=== PATIENT | female | born 1970 | race American Indian/Alaskan Native ===

== ENCOUNTER 2017-07-22 06:33 | Emergency (ER) | payer BC ==
[2017-07-22 06:33] VITALS: BMI 26.6
[2017-07-22 06:53] VITALS: TEMP 98.7
[2017-07-22 07:37] VITALS: O2SAT 100
--- NOTE | 2017-07-22 07:51 | C.PDOC ---
History Of Present Illness 47 yo female w/o significant PMHx come in for evaluation of Right lower leg pain gradually developed for past few weeks. Pt sts, pain is diffuse from Right knee down to Right ankle, associated with mild ankle swelling. Pain is intermittent and worse with ambulation. Pt denies known trauma or injury, fever , chills, headache, dizziness, CP, SOB, dyspnea, diaphoresis, palpitation, cough , denies skin changes to Right leg, weakness, sensory or vascular deficits. No risk factors for DVT or PE. Noted HTN on triage, pt denies previous hx, no medication use. Time Seen by Provider: 07/22/17 07:23 Chief Complaint (Nursing): Lower Extremity Problem/Injury History Per: Patient History/Exam Limitations: no limitations Onset/Duration Of Symptoms: Gradual (past few weeks) Current Symptoms Are (Timing): Still Present Recent travel outside of the [place]: No Past Medical History Reviewed: Historical Data, Nursing Documentation, Vital Signs Vital Signs: Last Vital Signs Temp 98.7 F 07/22/17 06:45 Pulse 86 07/22/17 09:46 Resp 16 07/22/17 09:46 BP 173/98 H 07/22/17 09:46 Pulse Ox 100 07/22/17 10:41 Family History: States: No Known Family Hx - Social History Hx Alcohol Use: Yes (SOCIAL) Hx Substance Use: No - Immunization History Hx Tetanus Toxoid Vaccination: No Hx Influenza Vaccination: Yes Hx Pneumococcal Vaccination: No Review Of Systems Except As Marked, All Systems Reviewed And Found Negative. Constitutional: Negative for: Fever, Chills Cardiovascular: Negative for: Chest Pain, Palpitations Respiratory: Negative for: Cough, Shortness of Breath Musculoskeletal: Positive for: Other ((+) right lower leg pain and ankle swelling) Neurological: Negative for: Weakness, Numbness, Headache, Dizziness Physical Exam - Physical Exam Appears: Well, Non-toxic, No Acute Distress Skin: Normal Color, Warm, Dry, No Rash, No Ecchymosis Eye(s): bilateral: PERRL Nose: No Discharge Oral Mucosa: Moist Neck: Trachea Midline, Supple Cardiovascular: Rhythm Regular, No Murmur, No JVD Respiratory: No Decreased Breath Sounds, No Accessory Muscle Use, No Stridor, No Wheezing Back: No CVA Tenderness Extremity: Normal ROM, Tenderness (mild Right posterior knee), Calf Tenderness ( Right), No Capillary Refill, No Deformity, Swelling (mild over lateral malleolus of Right ankle.) Neurological/Psych: Oriented x3, Normal Speech, Normal Motor, Normal Sensation, Normal Reflexes ED Course And Treatment O2 Sat by Pulse Oximetry: 100 (RA) Pulse Ox Interpretation: Normal Progress Note: 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 TECH ARRIVED AT 9:05 AND STUDY WAS PERFORMED. On re-eval, pt is afebrile, hemodynamicaly stable. non-toxic. Ambulatory in Ed with stable gait. neck: Supple, (-) JVD, (-) carotid bruits B/L. CVS: (+)S1S2, reg. RLE: exam c/w lower leg cramping, FAROM, no neurovascular deficits, no skin changes. Neurologicaly intact. Doppler US RLE (-) DVT, mild fluid posterior aspect Right knee. Pt has clinical findings c/w HTN, Right knee arthralgia with lower leg cramping r/o blanchard cyst. Tesfaye wrap applied to Right knee. Pt advised. ref. to F/u with Ortho in 2-3 days for re-eavl. return if any new changes. Medical Decision Making Medical Decision Making: PLAN: * Venous Duplex * Hydrochlorothiazide PO Disposition Counseled Patient/Family Regarding: Studies Performed, Diagnosis, Need For Followup, Rx Given - Disposition Referrals: Gurjit Sadler MD [Staff Provider] - Disposition: HOME/ ROUTINE Disposition Time: 09:40 Condition: STABLE Additional Instructions: TESFAYE WRAP TO RIGHT KNEE FOR 2-3 WEEK IBUPROFEN FOR PAIN TWICE DAILY FOLLOW UP WITH ORTHOPEDIST IN 2-3 DAYS FOR RE-EVALUATION. RETURN TO ED IF ANY WORSENING OR NEW CHANGES. Prescriptions: Lisinopril/Hydrochlorothiazide [Lisinopril-Hctz 10-12.5 mg Tab] 1 each PO DAILY #20 tablet Instructions: Knee Pain (ED), Hypertension (ED) Forms: [facility] (South African), Work Excuse - Clinical Impression Clinical Impression: Arthralgia of knee, Leg cramping, Hypertension - PA / DIRECTOR PAID MEDIA / Resident Statement MD/DO has reviewed & agrees with the documentation as recorded. - Scribe Statement The provider has reviewed the documentation as recorded by the Scribe Nicole Marino All medical record entries made by the Scribe were at my direction and personally dictated by me. I have reviewed the chart and agree that the record accurately reflects my personal performance of the history, physical exam, medical decision making, and the department course for this patient. I have also personally directed, reviewed, and agree with the discharge instructions and disposition.
[2017-07-22 09:47] VITALS: BP 173/98; PULSE 86; RESP 16
--- NOTE | 2017-07-23 11:33 | VASCLAB ---
PROCEDURE: Right Lower Extremity Venous Duplex Exam. HISTORY: pain, Right lower extremity. edema PRIORS: None. TECHNIQUE: Right common femoral, femoral, popliteal and posterior tibial, peroneal and great saphenous veins were evaluated. Flow was assessed with color Doppler, compressibility, assessment of phasic flow and augmentation response. Report prepared by Dorian Pichardo, RVT FINDINGS: RIGHT: 1. Common Femoral Vein: 1.1. Compressibility - Fully compressible: Thrombus - None: Flow - Phasic: Augmentation -Normal: Reflux - . 2. Femoral Vein: 2.1. Compressibility - Fully compressible: Thrombus - None: Flow - Phasic: Augmentation -Normal: Reflux - . 3. Popliteal Vein: 3.1. Compressibility - Fully compressible: Thrombus - None: Flow - Phasic: Augmentation -Normal: Reflux - . 4. Posterior Tibial Vein: 4.1. Compressibility - Fully compressible: Thrombus - None: Flow - : Augmentation -: Reflux - . 5. Peroneal Vein: 5.1. Compressibility - Fully compressible: Thrombus - None: Flow - : Augmentation -: Reflux - . 6. Great Saphenous Vein: 6.1. Compressibility - Fully compressible: Thrombus -None: Flow - Phasic: Augmentation - Normal: Reflux - . OTHER FINDINGS: There was a complex non vascular structure behind the right knee noted, which measured approximately 4.1x1.3 cm. IMPRESSION: No evidence of deep or superficial vein thrombosis of the right lower extremity with excellent venous flow. Normal venous flow noted in the left common femoral vein.
== END 2017-07-22 10:37 | disposition home or self-care (01) ==
LOC: C.ER 06:33
DX: M25.561 Pain in right knee (principal); R25.2 Cramp and spasm; I10 Essential (primary) hypertension

== ENCOUNTER 2017-07-27 20:47 | Emergency (ER) | payer BC ==
[2017-07-27 20:47] VITALS: BMI 26.6
[2017-07-27 21:00] VITALS: RESP 18
[2017-07-27] MEDS ORDERED: DiphenhydrAMINE 50 mg/ml Inj IVP STA (21:54)
--- NOTE | 2017-07-27 21:57 | C.PDOC ---
History Of Present Illness 47 year old female presents to the ER after having an allergic reaction at approximately 19:00 which caused lower lip swelling. Patient reports she was eating a sausage at the time which is not uncommon for her but also notes she recently started taking lisinopril 2 days ago. Denies chest pain, SOB, difficulty breathing, or difficulty swallowing. Chief Complaint (Nursing): Allergic Reaction History Per: Patient History/Exam Limitations: no limitations Onset/Duration Of Symptoms: Hrs Current Symptoms Are (Timing): Still Present Possible Cause: ISACC Inhibitor Associated Symptoms: Swelling Home/EMS Treatment: None Recent travel outside of the [place]: No Past Medical History Reviewed: Historical Data, Nursing Documentation, Vital Signs Vital Signs: Last Vital Signs Temp 98.0 F 07/27/17 23:56 Pulse 84 07/27/17 23:56 Resp 18 07/27/17 23:56 BP 148/86 07/27/17 23:56 Pulse Ox 99 07/28/17 00:07 - Medical History PMH: HTN Family History: States: Unknown Family Hx - Social History Hx Alcohol Use: Yes (SOCIAL) Hx Substance Use: No - Immunization History Hx Tetanus Toxoid Vaccination: No Hx Influenza Vaccination: Yes Hx Pneumococcal Vaccination: No Review Of Systems Constitutional: Negative for: Fever, Chills ENT: Positive for: Mouth Swelling (Lower lip). Negative for: Throat Swelling Cardiovascular: Negative for: Chest Pain, Palpitations Respiratory: Negative for: Cough, Shortness of Breath, Wheezing Gastrointestinal: Negative for: Abdominal Pain Skin: Negative for: Rash Physical Exam - Physical Exam Appears: Non-toxic Skin: Normal Color, Warm, Dry Head: Atraumatic, Normacephalic Eye(s): bilateral: Normal Inspection Nose: Normal Oral Mucosa: Moist Tongue: Normal Appearing, No Swelling Lips: Swelling (Angioedema to lower lip) Gingiva: No Swelling Throat: Normal, No Erythema, No Exudate, No Other (Swelling) Neck: Normal, Supple Chest: Symmetrical, No Tenderness Cardiovascular: Rhythm Regular Respiratory: Normal Breath Sounds, No Accessory Muscle Use, No Rales, No Rhonchi , No Stridor, No Wheezing Gastrointestinal/Abdominal: Soft, No Tenderness Neurological/Psych: Oriented x3, Normal Speech ED Course And Treatment O2 Sat by Pulse Oximetry: 99 (Room air) Pulse Ox Interpretation: Normal Medical Decision Making Medical Decision Making: Impression: ISACC inhibitor induced angioedema. will treat with benadryl, pepcid, solumedrol, and IV fluids. On reevaluation, bottom lip edema persists but is not progressing, patient advised to apply ice pack at home and discontinue lisinopril, will put on alternative hypertensive meds and discharge home. Disposition - Disposition Disposition: HOME/ ROUTINE Disposition Time: 00:40 Condition: FAIR Prescriptions: Chlorthalidone [Hygroton] 25 mg PO DAILY #14 tab DiphenhydrAMINE [Benadryl] 25 mg PO TID PRN #15 cap PRN Reason: Itching / Pruritus Famotidine [Pepcid] 40 mg PO DAILY #5 tablet predniSONE [predniSONE Tab] 20 mg PO DAILY #5 tab Instructions: Angioedema (ED) Forms: [facility] (Thai), Work Excuse - Clinical Impression Clinical Impression: Angioedema - Scribe Statement The provider has reviewed the documentation as recorded by the Scribdonna Mccall All medical record entries made by the Scribe were at my direction and personally dictated by me. I have reviewed the chart and agree that the record accurately reflects my personal performance of the history, physical exam, medical decision making, and the department course for this patient. I have also personally directed, reviewed, and agree with the discharge instructions and disposition.
[2017-07-27] MEDS ORDERED: DiphenhydrAMINE 50 mg/ml Inj ONE (22:18)
[2017-07-27] MEDS: Sodium Chloride 0.9% 500 ML IV SCH ×2 (22:24→23:56)
[2017-07-27 23:57] VITALS: BP 148/86; PULSE 84; TEMP 98
[2017-07-28 00:07] VITALS: O2SAT 99
== END 2017-07-27 23:59 | disposition home or self-care (01) ==
LOC: C.ER 20:47
DX: T78.3XXA Angioneurotic edema, initial encounter (principal); I10 Essential (primary) hypertension
CPT/HCPCS: 96361; 96374; 96375; 99283; J1200; J2930; J7040

== ENCOUNTER 2017-07-28 05:49 | Observation (INO) | payer BC ==
[2017-07-28 05:51] VITALS: BMI 26.6
--- NOTE | 2017-07-28 06:23 | C.PDOC ---
History Of Present Illness 47 year old female with a Hx of HTN presents to the ER after being seen here earlier this evening after developing sudden onset of edema to the lower lip. Patient reported at the time that she was on lisinopril, she was given steriods , two H2 blockers and discharged with instructions to discontinue the isacc inhibitor. She now returns with worsening swelling involving the upper and lower lips. Patient denies respiratory difficulty or drooling but her condition has clearly progressed since discharge. Time Seen by Provider: 07/28/17 06:16 Chief Complaint (Nursing): Allergic Reaction History Per: Patient History/Exam Limitations: no limitations Onset/Duration Of Symptoms: Hrs Current Symptoms Are (Timing): Worse Possible Cause: ISACC Inhibitor Associated Symptoms: Swelling. denies: Dyspnea, Trouble Swallowing, Dizziness, Redness Home/EMS Treatment: H2 Blockers Recent travel outside of the [place]: No Past Medical History Reviewed: Historical Data, Nursing Documentation, Vital Signs Vital Signs: Last Vital Signs Temp 98.8 F 07/28/17 06:01 Pulse 122 H 07/28/17 06:01 Resp 16 07/28/17 06:01 BP 170/130 H 07/28/17 06:01 Pulse Ox 97 07/28/17 06:30 - Medical History PMH: HTN Family History: States: Unknown Family Hx - Social History Hx Alcohol Use: Yes (SOCIAL) Hx Substance Use: No - Immunization History Hx Tetanus Toxoid Vaccination: No Hx Influenza Vaccination: Yes Hx Pneumococcal Vaccination: No Review Of Systems Constitutional: Negative for: Fever, Chills ENT: Positive for: Mouth Swelling (Upper and lower lips). Negative for: Throat Swelling Cardiovascular: Negative for: Chest Pain, Palpitations Respiratory: Negative for: Shortness of Breath Skin: Negative for: Rash Physical Exam - Physical Exam Appears: Non-toxic, No Acute Distress Skin: Normal Color, Warm, Dry Head: Atraumatic, Normacephalic Eye(s): bilateral: Normal Inspection Oral Mucosa: Moist, No Drooling Tongue: Normal Appearing, No Swelling Lips: Swelling (Pronounced to upper and lower lips) Throat: Normal, No Erythema, No Exudate, No Other (Swelling) Neck: Normal, Supple Chest: Symmetrical, No Tenderness Cardiovascular: Rhythm Regular Respiratory: Normal Breath Sounds, No Accessory Muscle Use, No Rales, No Rhonchi , No Stridor, No Wheezing Gastrointestinal/Abdominal: Soft, No Tenderness Neurological/Psych: Oriented x3, Normal Speech ED Course And Treatment - Laboratory Results Result Diagrams: 07/28/17 06:26 07/28/17 06:26 O2 Sat by Pulse Oximetry: 97 (Room air) Pulse Ox Interpretation: Normal Medical Decision Making Medical Decision Making: Impression: Angioedema secondary to lisinopril. Case discussed with Dr. Skyler Rodriguez, medicine breast surgeon, who will accept patient for observation on telemetry. Disposition - Disposition Disposition: HOSPITALIZED Disposition Time: 06:50 Condition: FAIR - Clinical Impression Clinical Impression: Angioedema - Scribe Statement The provider has reviewed the documentation as recorded by the Scribe Chinedu Mccall All medical record entries made by the Scribe were at my direction and personally dictated by me. I have reviewed the chart and agree that the record accurately reflects my personal performance of the history, physical exam, medical decision making, and the department course for this patient. I have also personally directed, reviewed, and agree with the discharge instructions and disposition.
[2017-07-28 06:31] LABS: BASO % 0.2 % (0.0-2.0); EOS % 0.2 % (0.0-4.0); HEMOGLOBIN 13.2 g/dL (11.0-16.0); LYMPH # 0.5 K/uL (1.0-4.3); LYMPH % 7.2 % (20.0-40.0); MEAN CELL VOLUME 83.7 fL (81.0-99.0); MEAN CORPUSCULAR HEMOGLOBIN 27.9 pg (27.0-31.0); MEAN CORPUSCULAR HGB CONC 33.3 g/dL (33.0-37.0); MEAN PLATELET VOLUME 9.2 fL (7.2-11.7); MONO % 0.3 % (0.0-10.0); NEUT # 6.1 K/uL (1.8-7.0); NEUT % 92.1 % (50.0-75.0); PLATELET COUNT 231 K/uL (130-400); RBC 4.75 Mil/uL (3.80-5.20); RED CELL DISTRIBUTION WIDTH 13.2 % (11.5-14.5); WHITE BLOOD COUNT 6.7 K/uL (4.8-10.8)
[2017-07-28 06:42] LABS: ALB/GLOB RATIO 1.1 (1.0-2.1); ALBUMIN 4.2 g/dL (3.5-5.0); ALT/SGPT 17 U/L (9-52); AST/SGOT 38 U/L (14-36); BLOOD UREA NITROGEN 9 mg/dL (7-17); CALCIUM 8.8 mg/dl (8.6-10.4); GFR AFRICAN-AMERICAN > 60; GFR NON-AFRICAN AMERICAN > 60
[2017-07-28 06:59] VITALS: RESP 20
[2017-07-28 07:06] LABS: SQUAMOUS EPITHIAL < 1 /hpf (0-5); URINE BILIRUBIN NEGATIVE (NEGATIVE); URINE BLOOD 1+ (NEGATIVE); URINE CLARITY Clear (Clear); URINE COLOR Colorless (YELLOW); URINE GLUCOSE (UA) NORMAL (Normal); URINE LEUKOCYTE ESTERASE NEG Leu/uL (Negative); URINE NITRATE NEGATIVE (NEGATIVE); URINE PROTEIN NEGATIVE (NEGATIVE); URINE UROBILINOGEN NORMAL mg/dL (0.2-1.0)
[2017-07-28] MEDS ORDERED: DiphenhydrAMINE 50 mg/ml Inj IVP PRN (08:17)
[2017-07-28 08:38] LABS: LYMPHOCYTE 5 % (20-40); MONOCYTE 1 % (0-10); NEUTROPHIL 94 % (50-75); PLATELET ESTIMATE NORMAL (NORMAL); TOTAL CELLS COUNTED 100
[2017-07-28 08:39] LABS: ANISOCYTOSIS SLIGHT; TOXIC GRANULATION PRESENT
[2017-07-28 08:40] LABS: HYPOCHROMIC SLIGHT
[2017-07-28 08:42] LABS: LARGE PLATELETS PRESENT
[2017-07-28] MEDS: MethylPREDNISolone 40 mg Vial IVP SCH ×3 (09:23→20:23)
[2017-07-29] MEDS: MethylPREDNISolone 40 mg Vial IVP SCH ×2 (02:23→09:17)
[2017-07-29 08:14] VITALS: TEMP 98.4; O2SAT 97
[2017-07-29 12:10] VITALS: BP 137/84; PULSE 68
--- NOTE | 2017-07-30 08:05 | HP ---
HISTORY OF PRESENT ILLNESS: The patient is a 47-year-old female, chief complaint of swelling of the lips. Patient came to the ER, advised admission. Patient has history of hypertension lisinopril. PHYSICAL EXAMINATION: GENERAL: Patient is awake, alert and oriented. VITAL SIGNS: Temperature 98, pulse 90. HEENT: There is swelling of the lips present. NECK: Supple. CHEST: Symmetrical. HEART: Regular. ABDOMEN: Soft. EXTREMITIES: No edema. Patient suffers from Angioedema; Patient getting bed rest, supportive care. Mario Conn MD
== END 2017-07-29 14:37 | disposition home or self-care (01) ==
LOC: C.ER 05:49 → C.9E 06:20 → C.5S 06:50
PROVIDERS: ADMIT Internal Medicine Pulmonary Disease; ATTEND Internal Medicine Pulmonary Disease
DX: T46.4X5A Adverse effect of angiotensin-converting-enzyme inhibitors, initial encounter (principal); I10 Essential (primary) hypertension; T78.3XXA Angioneurotic edema, initial encounter
CPT/HCPCS: 80053; 81001; 85025; 99284; G0378; J1200; J2920

== ENCOUNTER 2017-09-29 10:31 | Emergency (ER) | payer BC ==
[2017-09-29 10:31] VITALS: BMI 26.6
[2017-09-29] MEDS ORDERED: Sodium Chloride 0.9% 1,000 ML IV ONE (10:59)
[2017-09-29] MEDS ORDERED: DiphenhydrAMINE 50 mg/ml Inj IVP STA (11:02)
--- NOTE | 2017-09-29 11:15 | C.PDOC ---
History Of Present Illness 47 yo female w/PMHx of HTN come in for evaluation of facial swelling gradually developed for past 2 days. Pt reports, started on new medication Metoprolol 50 mg 6 days ago and for past 2 days noted some swelling to lower aspect of face, lower lip. Pt admits, similar sx in past to multiple HTN medication. Otherwise, pt denies fever, chills, headache, dizziness, visual changes, throat tightness or swelling, drooling, dysphagia, dyspnea, CP, SOB, palpitation, wheezing, abd. pain, V/D, back pain, UTi sx, peripheral swelling. Ambulate to ED for evaluation , not in resp. disterss/ Time Seen by Provider: 09/29/17 10:43 Chief Complaint (Nursing): Allergic Reaction History Per: Patient Onset/Duration Of Symptoms: Gradual Past Medical History Reviewed: Historical Data, Nursing Documentation, Vital Signs Vital Signs: Last Vital Signs Temp 98.0 F 09/29/17 12:17 Pulse 98 H 09/29/17 12:17 Resp 18 09/29/17 12:17 BP 127/85 09/29/17 12:17 Pulse Ox 98 09/29/17 12:18 - Medical History PMH: HTN Surgical History: Denies: Pacemaker Family History: States: Unknown Family Hx - Social History Hx Tobacco Use: No Hx Alcohol Use: Yes (SOCIAL) Hx Substance Use: No - Immunization History Hx Tetanus Toxoid Vaccination: No Hx Influenza Vaccination: Yes (04/2017) Hx Pneumococcal Vaccination: No Review Of Systems Except As Marked, All Systems Reviewed And Found Negative. Constitutional: Negative for: Fever, Chills Eyes: Negative for: Vision Change, Redness ENT: Positive for: Mouth Swelling. Negative for: Ear Discharge, Nose Discharge , Throat Pain, Throat Swelling Cardiovascular: Negative for: Chest Pain, Palpitations, Orthopnea, Edema, Light Headedness Respiratory: Negative for: Cough, Shortness of Breath, Wheezing Gastrointestinal: Negative for: Nausea, Vomiting, Abdominal Pain Genitourinary: Negative for: Dysuria Musculoskeletal: Negative for: Neck Pain, Back Pain Skin: Negative for: Rash Neurological: Negative for: Weakness, Numbness, Altered Mental Status, Headache , Dizziness Physical Exam - Physical Exam Appears: Well, Non-toxic, No Acute Distress Skin: Normal Color, Warm, Dry, No Rash Head: Normacephalic Eye(s): bilateral: PERRL Ear(s): Bilateral: Normal Nose: No Flaring, No Discharge Oral Mucosa: Moist Tongue: No Swelling Lips: Swelling (mild Left lower lip), Other (mild edema noted to Left lower face. NO erythema.) Throat: No Erythema, No Drooling, Other (Uvula midline, no edema.) Neck: Trachea Midline, Supple Cardiovascular: Rhythm Regular, No Murmur, No JVD Respiratory: No Decreased Breath Sounds, No Accessory Muscle Use, No Stridor, No Wheezing Gastrointestinal/Abdominal: Soft, No Tenderness, No Distention, No Guarding Extremity: Normal ROM, No Deformity, No Swelling Neurological/Psych: Oriented x3, Normal Speech ED Course And Treatment - Laboratory Results Result Diagrams: 09/29/17 11:15 09/29/17 11:15 Lab Interpretation: Normal O2 Sat by Pulse Oximetry: 98 Pulse Ox Interpretation: Normal Progress Note: Pt was OBS in ED for 3 hours and moderate imprvement noetd in facial swelling. On re-evaluation, pt resting comfortably, not in resp. distress. Afebrile, hemodynamicaly stable. Non-toxic. PulsEOx 98% RA. ENT: no drooling. uvula midline, no edema. Neck: SUpple, (-) JVD, (-) carotid bruits B/L. Lungs: CTA B/L, BS equal B/L. CVS: (+)S1S2, reg. Abd: benign, (- ) guardiong, (-) rebound. Back: (-) CVA tenderness. Blood work review and appears normal, no leukocytosis or left shift. BMP- no electolytes abnormalities. UA- normal study. Results review and discussed with pt. Pt advised on course of ds, stop Metoprorlol immediately due to allergic reaction. Pt has clinical findings c/w angioedema likely to Metoprolol use. Pt ref. to F/U with PMD, locomotive mechanic in 2 days for re-eavl. return to ED if any worsening or new changes. 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 Return to ED if any worsening or new changes. Prescriptions: DiphenhydrAMINE [Benadryl] 25 mg PO BID #10 cap Famotidine [Pepcid] 20 mg PO BID #10 tab Prednisone [Deltasone] 60 mg PO DAILY #9 tablet Instructions: Angioedema Forms: [facility] (Hungarian) - Clinical Impression Clinical Impression: Angioedema
[2017-09-29] MEDS ORDERED: Sodium Chloride 0.9% 1,000 ML ONE (11:17)
[2017-09-29] MEDS ORDERED: DiphenhydrAMINE 50 mg/ml Inj ONE (11:18)
[2017-09-29 11:31] LABS: BLOOD UREA NITROGEN 8 mg/dL (7-17); CALCIUM 9.3 mg/dl (8.6-10.4); GFR AFRICAN-AMERICAN > 60; GFR NON-AFRICAN AMERICAN > 60
[2017-09-29 11:46] LABS: BASO % 0.6 % (0.0-2.0); EOS # 0.1 K/uL (0.0-0.7); EOS % 1.5 % (0.0-4.0); LYMPH # 1.2 K/uL (1.0-4.3); LYMPH % 25.9 % (20.0-40.0); MEAN CELL VOLUME 83.6 fL (81.0-99.0); MEAN CORPUSCULAR HEMOGLOBIN 27.7 pg (27.0-31.0); MEAN CORPUSCULAR HGB CONC 33.2 g/dL (33.0-37.0); MEAN PLATELET VOLUME 9.2 fL (7.2-11.7); MONO # 0.3 K/uL (0.0-0.8); MONO % 5.5 % (0.0-10.0); NEUT % 66.5 % (50.0-75.0); NRBC % 0.1 % (0.0-2.0); RBC 4.69 Mil/uL (3.80-5.20); RED CELL DISTRIBUTION WIDTH 14.3 % (11.5-14.5); WHITE BLOOD COUNT 4.5 K/uL (4.8-10.8)
[2017-09-29 11:49] LABS: SQUAMOUS EPITHIAL 1 /hpf (0-5); URINE BILIRUBIN NEGATIVE (NEGATIVE); URINE BLOOD 1+ (NEGATIVE); URINE CLARITY Hazy (Clear); URINE COLOR Yellow (YELLOW); URINE GLUCOSE (UA) NORMAL (Normal); URINE LEUKOCYTE ESTERASE NEG Leu/uL (Negative); URINE PROTEIN NEGATIVE (NEGATIVE); URINE UROBILINOGEN NORMAL mg/dL (0.2-1.0)
[2017-09-29 12:21] VITALS: PULSE 98
[2017-09-29 14:06] VITALS: BP 140/99; RESP 16; TEMP 98.1; O2SAT 100
== END 2017-09-29 14:32 | disposition home or self-care (01) ==
LOC: C.ER 10:31
DX: T78.3XXA Angioneurotic edema, initial encounter (principal)
CPT/HCPCS: 80048; 81001; 85025; 96361; 96374; 96375; 99285; J1200; J2930; J7040